=== PATIENT | female | born 1935 | race Caucasian/White ===

== ENCOUNTER 2022-08-08 07:19 | Emergency (ER) | payer MEDICARE, OTHER | END 2022-08-08 08:30 | disposition home or self-care (01) | LOC: JP.ED 07:19 | DX: N39.0 Urinary tract infection, site not specified (principal); R82.81 Pyuria; R82.71 Bacteriuria; Z79.899 Other long term (current) drug therapy | CPT/HCPCS: 81001; 87086; 99283; 99284 ==